=== PATIENT | female | born 1945 | race Caucasian/White ===

== ENCOUNTER 2020-05-01 08:47 | Outpatient (CLI) | payer OTHER | END 2020-05-01 09:00 | disposition HB | LOC: MRI 08:47 | PROVIDERS: ATTEND Orthopaedic Surgery | DX: M17.11 Unilateral primary osteoarthritis, right knee (principal); M25.461 Effusion, right knee; M25.561 Pain in right knee; S83.241A Other tear of medial meniscus, current injury, right knee, initial encounter | CPT/HCPCS: 73721 ==

== ENCOUNTER 2024-10-31 10:00 | Inpatient (IN) | payer OTHER ==
[~2024-10-31] VITALS: Ht 160 cm; Wt 77.1 kg
[2024-10-31 12:02] LABS: URINE APPEARANCE Clear; URINE BILIRRUBIN Negative (NEGATIVE); URINE BLOOD Negative; URINE COLOR Yellow; URINE KETONE Negative (NEGATIVE); URINE LEUKOCYTE Negative; URINE NITRATE Negative; URINE PROTEIN Negative (NEGATIVE); URINE UROBILINOGEN 0.2 E.U./dl
[2024-10-31 12:07] LABS: URINE BACTERIA 21.6 uL (0.0-1933); URINE EPITHELIAL CELLS 7.3 uL (0.0-38.8); URINE RBC 3.6 uL (0.0-20.8); URINE WBC 4.2 uL (0.0-23.2)
[2024-10-31 12:10] LABS: BASO % 0.9 % (0.1-1.2); EOS # 0.27 (0.04-0.54); EOS % 2.6 % (0.7-7.0); LYMPH # 3.11 (1.18-3.74); LYMPH % 29.4 % (19.3-53.1); MEAN PLATELET VOLUME 9.80 fl (9.4-12.4); MONO # 0.74 (0.24-0.82); MONO % 7.0 % (4.7-12.5); NEUT # 6.29 (1.56-6.13); NEUT % 59.3 % (34.0-71.1); RED CELL DISTRIBUTION WIDTH 13.5 % (11.6-14.4)
[2024-10-31 12:20] LABS: INR 1.0
[2024-10-31] MEDS ORDERED: GLIMEPIRIDE4 MG (12:38)
[2024-10-31] MEDS ORDERED: SYNTHROID50 MCG PO (12:39)
[2024-10-31] MEDS ORDERED: ZYRTEC10 M3 PO (12:40)
[2024-10-31] MEDS ORDERED: ROSUVASTATIN CA20 MG PO (12:40)
[2024-10-31] MEDS ORDERED: IRBESARTAN-HCT1 EACH PO (12:40)
[2024-10-31] MEDS ORDERED: HORIZANT300 MG PO (12:40)
[2024-10-31] MEDS ORDERED: MAXIMUM D3325 MCG PO (12:41)
[2024-10-31] MEDS ORDERED: DILTIAZEM 24HR120 M1 PO (12:41)
[2024-10-31 12:42] LABS: URINE CAST 0.14 uL (0.0-1.40); URINE GLUCOSE 100 MG/DL (NEGATIVE)
[2024-10-31 12:44] VITALS: BP 120/58
[2024-10-31 13:06] LABS: ALT/SGPT 24.0 U/L (12-78); AST/SGOT 9.0 U/L (15-37); BILIRUBIN TOTAL 0.84 mg/dL (0.3-1.2); BUN CREA RATIO 20.0 (7.0-25.0); CREATININE SERUM 0.88 mg/dL (0.55-1.02); GFR 62.31; GLOBULINA 3.2 G/DL (2.4-3.5); OSMOLALITY SERUM 289.0 MOSM/KG (275-295)
[2024-10-31 13:50] LABS: GLUCOSE FASTING 207.0 mg/dL (65-100)
[2024-11-11] MEDS ORDERED: LIDOCAINE HCL 1%/EPINEPHRINE 20ML VIAL IJ ONE (17:15)
[2024-11-11] MEDS ORDERED: BUPIVACAINE HCL/PF 0.25% 30ML VIAL InF ONE (17:15)
[2024-11-11] MEDS ORDERED: KETOROLAC TROMETHAMINE 60 MG VIAL IM ONE (17:15)
[2024-11-11] MEDS ORDERED: CEFAZOLIN SODIUM 1,000 MG VIAL IV ONE (17:15)
[2024-11-11] MEDS ORDERED: TRANEXAMIC ACID 100MG/1ML (1000MG) AMPUL IV ONE ×2 (17:15)
[2024-11-11] MEDS ORDERED: MORPHINE SULFATE 4 MG/ML VIAL IV ONE ×4 (17:15→21:00)
[2024-11-11] MEDS ORDERED: GENTAMICIN SULFATE 40 MG/ML VIAL IV SCH (17:49)
[2024-11-11] MEDS ORDERED: MORPHINE SULFATE 4 MG/ML CARTRIDGE IV PRN (18:00)
[2024-11-11] MEDS ORDERED: CEFAZOLIN SODIUM 1,000 MG VIAL IV SCH (18:00)
[2024-11-11] MEDS ORDERED: ONDANSETRON HCL 2 MG/ML VIAL IV PRN (18:00)
[2024-11-11] MEDS ORDERED: SODIUM CHLORIDE 0.45 % 1,000 ML IV SCH (18:00)
[2024-11-11 22:24] VITALS: BP 119/71; O2SAT 97
[2024-11-12 03:37] VITALS: BP 104/58; O2SAT 98
[2024-11-12] MEDS ORDERED: LEVOTHYROXINE SODIUM 50 MCG TABLET PO SCH (06:00)
[2024-11-12 08:00] VITALS: BP 116/65; O2SAT 97
[2024-11-12] MEDS ORDERED: ACETAMINOPHEN WITH CODEINE 1 UDTAB TABLET PO PRN (08:15)
[2024-11-12] MEDS ORDERED: SENNA/DOCUSATE SODIUM 1 TAB TABLET PO SCH (09:00)
[2024-11-12] MEDS ORDERED: BACITRACIN 28.35 GM OINT.TUBE TOP SCH (09:00)
[2024-11-12] MEDS ORDERED: DILTIAZEM HCL 120 MG CAP.SR.24H PO SCH (09:00)
[2024-11-12] MEDS ORDERED: ROSUVASTATIN CALCIUM 20 MG TABLET PO SCH (09:00)
[2024-11-12] MEDS ORDERED: GLIMEPIRIDE 4 MG TABLET PO SCH (09:00)
[2024-11-12] MEDS ORDERED: RIVAROXABAN 10 MG TAB PO SCH (09:00)
[2024-11-12] MEDS ORDERED: IRON FUM,PS/FOLIC/BCOMP,C NO.9 1 CAP CAPSULE PO SCH (09:00)
[2024-11-12] MEDS ORDERED: INSULIN LISPRO 1,000 UNIT/10 ML UNITS SUBCUTANEO PRN (11:00)
[2024-11-12] MEDS ORDERED: DEXTROSE 50 % IN WATER 0.5 G/ML VIAL IV PRN (11:00)
[2024-11-12 16:00] VITALS: BP 119/72; O2SAT 95
[2024-11-12] MEDS ORDERED: SULFAMETHOXAZOLE/TRIMETHOPRIM DS 1 TAB PO SCH (21:00)
[2024-11-13 01:53] VITALS: BP 113/67; O2SAT 100
[2024-11-13] MEDS ORDERED: Septra Ds Tablet PO (06:33)
[2024-11-13] MEDS ORDERED: XARELTO10 MG PO (06:33)
[2024-11-13] MEDS ORDERED: INTEGRA PLUS C1 EACH PO (06:33)
[2024-11-13] MEDS ORDERED: ACETAMINOPHEN-1 EAC2 PO (06:34)
[2024-11-13 07:03] LABS: BASO % 0.3 % (0.1-1.2); EOS # 0.05 (0.04-0.54); EOS % 0.4 % (0.7-7.0); LYMPH # 2.31 (1.18-3.74); LYMPH % 17.6 % (19.3-53.1); MEAN PLATELET VOLUME 10.80 fl (9.4-12.4); MONO # 1.61 (0.24-0.82); NEUT # 9.09 (1.56-6.13); NEUT % 69.0 % (34.0-71.1); RED CELL DISTRIBUTION WIDTH 13.4 % (11.6-14.4)
[2024-11-13 07:09] LABS: MONO % 12.2 % (4.7-12.5)
[2024-11-13 08:26] VITALS: BP 135/70; O2SAT 98
[2024-11-13 17:45] VITALS: BP 111/66; O2SAT 98
== END 2024-11-14 06:13 | DRG 470 ==
LOC: SURG 11-11 10:00 → O/R 11-11 10:13 → SURG 11-11 10:45
PROVIDERS: ADMIT Orthopaedic Surgery Sports Medicine; ATTEND Orthopaedic Surgery Sports Medicine
PROC: 0SRB0JZ Replacement of Left Hip Joint with Synthetic Substitute, Open Approach (ICD-10-PCS; principal; 2024-11-11 10:45)
DX: M16.12 Unilateral primary osteoarthritis, left hip (principal); I10 Essential (primary) hypertension; E11.9 Type 2 diabetes mellitus without complications; Z74.09 Other reduced mobility; Z79.84 Long term (current) use of oral hypoglycemic drugs